=== PATIENT | male | born 1965 | race Caucasian/White ===

== ENCOUNTER 2023-01-25 13:16 | Outpatient (CLI) | payer OTHER, SELFPAY | END 2023-01-25 13:17 | disposition home or self-care (01) | LOC: FRMREF 13:16 | PROVIDERS: PCP Physician Assistant Medical; Visit Provider Family Medicine | DX: Z01.818 Encounter for other preprocedural examination (principal); R97.20 Elevated prostate specific antigen [PSA] | CPT/HCPCS: 84153 ==

== ENCOUNTER 2023-12-14 08:59 | Outpatient (CLI) | payer OTHER, SELFPAY ==
--- OUTSIDE RECORDS SUMMARY | 2023-12-14 09:04 | XMS_ITS | Clinical Summary ---
Author Organization [facility] Address [address] [place] [address] Care Team Providers Care Electronics Processor Name Role Phone Md IMAN Farrar Primary Care Provider [phone] Source Comments You are receiving this document as you are listed as the primary care provider,follow-up provider, or the patient has been referred to you for consultation.This is in compliance with the Medicare and[facility] Incentive [facility],which states Providers who transition their patient to another setting of careor provider of care or refers their patient to another provider of care shouldprovide summary care record for each transition of care or referral. [facility] Allerg[facility] No known active allergies Medications Medication Sig Dispensed Refills Start Date End Date Status amphetamine-dextroamph etamine XR (ADDERALL XR) 15 MG 24 hour release capsule 15 mg orally every morning. start date 03/05/23* Active Social History Tobacco Use Types Packs/Day Years Used Date Smoking Tobacco: Never Tobacco Cessation:Counseling Given: Not Answered Sex and Gender Information Value Date Recorded Sex Assigned at Male 02/09/2021 9:21 AM CDT Gender Identity Male 02/09/2021 9:21 AM CDT Sexual Orientation Straight 02/09/2021 9: 21 AM CDT Last Filed Vital Signs Vital Sign Reading Time Taken Comments Blood Pressure 133/76 07/14/2023 10:12 AM CDT Pulse 78 07/14/2023 10:12 AM CDT Temperature 36.9 ??C (98.4 ??F) 07/14/2023 10:12 AM C DT Respiratory Rate 18 07/14/2023 10:12 AM CDT Oxygen Saturation 99% 07/14/2023 10:12 AM CDT Inhaled Oxygen Concentration - - Weight - - Height - - Body Mass Index - - Plan of Treatment Health Maintenance Due Date Last Done Comments Colon Cancer Screening Plan Due 1965 Hep C Screening (Preventive Services) 1965 PSA Screening Discussion 1965 HIV Screening (Preventive Services) 1981 Adult Preventive Visit 10/27/1983 HepB (1) 1984 Cholesterol 2000 Zoster/Shingles (1 of 2) 10/27/2015 DTaP/Tdap/Td (2 - Tdap) 08/17/2022 08/17/2012, 01/21 Influenza (#1) 2023 01/25/2023, 02/15, 02/18/2021, Additional history exists COVID-19 Vaccine Completed 02/26/2023, 02/2022, 09/19/2021, Additional history exists HepA Aged Out No longer eligi ble based on patient's age to complete this topic Hib Aged Out No longer eligi ble based on patient's age to complete this topic IPV (Polio) Aged Out No longer eligi ble based on patient's age to complete this topic MCV4 Aged Out No longer eligi ble based on patient's age to complete this topic Pneumococcal Aged Out No longer eligi ble based on patient's age to complete this topic Care Teams Electronics Processor Relationship Specialty Start Date End Date [address], [place] [address] PCP - General 07/18/10
== END 2023-12-14 09:00 | disposition home or self-care (01) ==
PROVIDERS: PCP Physician Assistant Medical; Visit Provider Family Medicine
DX: E78.2 Mixed hyperlipidemia (principal); R97.20 Elevated prostate specific antigen [PSA]; Z11.59 Encounter for screening for other viral diseases; Z12.5 Encounter for screening for malignant neoplasm of prostate; Z13.228 Encounter for screening for other metabolic disorders
CPT/HCPCS: 80053; 80061; 86803; G0103

== ENCOUNTER 2024-01-12 08:07 | Outpatient (CLI) | payer OTHER, SELFPAY ==
--- OUTSIDE RECORDS SUMMARY | 2024-01-12 08:13 | XMS_ITS | Clinical Summary ---
Author Organization [facility] Address [address] [place] [address] Care Team Providers Care Hot Dip Plating Supervisor Name Role Phone Md IMAN Farrar Primary Care Provider [phone] Source Comments You are receiving this document as you are listed as the primary care provider,follow-up provider, or the patient has been referred to you for consultation.This is in compliance with the Medicare and[facility] E[facility] Incentive Program,which states Providers who transition their patient to another setting of careor provider of care or refers their patient to another provider of care shouldprovide summary care record for each transition of care or referral. [facility] Allergies No known active allergies Medications Medication [...] DTaP/Tdap/Td (2 - Tdap) 08/17/2022 08/17/2012, 01/21 COVID-19 Vaccine ( season) 2023 02/26/2023, 02/25/2022, 09/19/2021, Additional history exists Influenza (#1) 2023 01/25/2023, 02/15, 02/18/2021, Additional history exists HepA Aged Out No [...] age to complete this topic Care Teams Hot Dip Plating Supervisor Relationship Specialty Start Date End Date [address], [place] [address] PCP - General 07/18/10
--- NOTE | 2024-01-12 08:15 | CRLHL7_ITS ---
For Patients: As a result of the Cures Act, medical imaging exams and procedure reports are released immediately into your electronic medical record. You may view this report before your referring provider. If you have questions, please contact your health care provider. Examination: US abdominal aorta Indication: Abdominal aortic aneurysm screening. Technique: Meza scale and color Doppler images of the aorta and common iliac arteries are obtained. Comparison: None Findings: Proximal aorta: 2.8 x 2.7 cm Mid aorta: 2.0 x 2.1 cm Distal aorta: 1.8 x 2.1 cm Right common iliac artery: 1.2 x 1.1 cm Left common iliac artery: 1.3 x 1.4 cm Impression: No abdominal aortic aneurysm. Dictated by Aron Brown MD @ 01/12/2024 9:11:16 AM (Electronically Signed)
== END 2024-01-12 08:08 | disposition home or self-care (01) ==
LOC: US 08:11
PROVIDERS: PCP Family Medicine; Visit Provider Family Medicine
DX: Z13.6 Encounter for screening for cardiovascular disorders (principal); Z82.49 Family history of ischemic heart disease and other diseases of the circulatory system
CPT/HCPCS: 76706

== ENCOUNTER 2024-12-24 13:34 | Outpatient (CLI) | payer OTHER, SELFPAY | END 2024-12-24 13:35 | disposition home or self-care (01) | PROVIDERS: PCP Family Medicine; Visit Provider Family Medicine | DX: E78.5 Hyperlipidemia, unspecified (principal); R97.20 Elevated prostate specific antigen [PSA]; Z12.5 Encounter for screening for malignant neoplasm of prostate | CPT/HCPCS: 80053; 80061; G0103 ==

== ENCOUNTER 2025-03-07 09:10 | Outpatient (CLI) | payer OTHER, SELFPAY | END 2025-03-07 09:11 | disposition home or self-care (01) | LOC: NFLDREF 03-13 13:59 | PROVIDERS: PCP Family Medicine; Referring Provider Family Medicine; Visit Provider Family Medicine | DX: R97.20 Elevated prostate specific antigen [PSA] (principal) | CPT/HCPCS: G0103 ==

== ENCOUNTER 2025-03-21 08:05 | Outpatient (CLI) | payer OTHER, SELFPAY ==
--- NOTE | 2025-03-21 08:15 | CRLHL7_ITS ---
For Patients: As a result of the 21st Century Cures Act, medical imaging exams and procedure reports are released immediately into your electronic medical record. You may view this report before your referring provider. If you have questions, please contact your health care provider. CLINICAL INDICATION: Right hip pain. COMPARISON IMAGING STUDIES: Radiographs from 03/11/2025. TECHNICAL: Axial, sagittal and coronal PDFS small field of view images of the right hip. Coronal and axial T1 and PDFS large field of view images of the entire pelvis. 1.5 Lupe MR scanner. FINDINGS: RIGHT HIP: Mild cam morphology of the right proximal femur. There is decreased acetabular anteversion superiorly with possible subtle superior retroversion indicating pincer morphology of the acetabulum. Mild osteophyte formation involving the right hip. No right hip joint effusion. There is full-thickness grade 4 acetabular articular cartilage wear present anterosuperiorly and superolaterally. Small focus of subchondral bone marrow edema is present anterosuperiorly. Moderate to high-grade femoral head articular cartilage wear (grade 2 and 3). There is degenerative acetabular labral tearing. For example, anterior superior through superolateral degenerative labral tearing is noted on coronal PD fat-sat images number 17 through 23 of series 6. LEFT HIP: Mild cam morphology of left proximal femur. Decreased acetabular anteversion superiorly. Suspected high-grade cartilage wear superior laterally (grade 3). Degenerative labral changes. OSSEOUS STRUCTURES: No fracture or avascular necrosis. No pathologic marrow replacement process. MUSCULOTENDINOUS STRUCTURES AND BURSAE: Distal gluteal tendons are intact. No trochanteric bursitis. On the right, there is chronic partial tearing of the common hamstring tendon. The left common hamstring tendon is intact. Distal iliopsoas tendons are intact. No iliopsoas bursitis. OTHER FINDINGS: Degenerative changes within the lower lumbar spine. INTRAPELVIC CONTENTS: Enlarged prostate. No deep pelvic fluid collection. IMPRESSION: 1. 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 High-grade, up to full-thickness grade 4 cartilage abnormality involving the acetabulum. Moderate to high-grade femoral head cartilage wear. Degenerative labral tearing. No hip joint effusion. 2. 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 Suspected high-grade cartilage wear superior laterally along with degenerative labral changes. 3. Chronic partial tearing of the right common hamstring tendon. 4. Degenerative changes of the spine. 5. Enlarged prostate. Dictated by Ceferino Sousa MD @ 03/21/2025 12:26:22 PM (Electronically Signed)
== END 2025-03-21 08:06 | disposition home or self-care (01) ==
LOC: MRI 08:05
PROVIDERS: PCP Family Medicine; Visit Provider Family Medicine
DX: M25.551 Pain in right hip (principal); S76.011A Strain of muscle, fascia and tendon of right hip, initial encounter; S73.191A Other sprain of right hip, initial encounter; N40.0 Benign prostatic hyperplasia without lower urinary tract symptoms; R29.898 Other symptoms and signs involving the musculoskeletal system
CPT/HCPCS: 73721